=== PATIENT | male | born 1980 | race Caucasian/White ===

== ENCOUNTER → 2020-06-28 08:16 | Outpatient (CLI) | payer OTHER, SELFPAY ==
[2020-06-28] MEDS: COVID-19 VACC #1, MRNA(MOD) 100 MCG/0.5 ML VIAL IM (08:27)
== END ==
PROVIDERS: Visit Provider Internal Medicine
DX: Z23 Encounter for immunization (principal)
CPT/HCPCS: 0011A; 91301

== ENCOUNTER → 2020-06-29 16:58 | Outpatient (CLI) | payer OTHER, SELFPAY ==
--- NOTE | 2020-06-29 17:01 | DI.RAD.S_ITS ---
PROCEDURE: XR CHEST 2V INDICATIONS: Smoker's cough TECHNIQUE: 2 views of the chest were acquired. COMPARISON: None. FINDINGS: Surgical changes and devices: None. Lungs and pleura: Lungs are clear. No pleural effusions or pneumothorax. Mediastinum: Mediastinal contours are normal. Heart size is normal. Bones and chest wall: No suspicious bony abnormalities. Soft tissues appear unremarkable. IMPRESSION: No acute cardiopulmonary abnormality. Dictated by: Den Marin M.D. on 06/30/2020 at 8:13 Approved by: Den Marin M.D. on 06/30/2020 at 8:14
== END ==
PROVIDERS: PCP Student in an Organized Health Care Education/Training Program; Referring Provider Student in an Organized Health Care Education/Training Program; Visit Provider Student in an Organized Health Care Education/Training Program
DX: R05 Cough (principal)
CPT/HCPCS: 71046

== ENCOUNTER → 2020-07-26 08:11 | Outpatient (CLI) | payer OTHER, SELFPAY ==
[2020-07-26] MEDS: COVID-19 VACC #2, MRNA(MOD) 100 MCG/0.5 ML VIAL IM (08:15)
== END ==
PROVIDERS: PCP Student in an Organized Health Care Education/Training Program; Visit Provider Internal Medicine
DX: Z23 Encounter for immunization (principal)
CPT/HCPCS: 0012A; 91301